=== PATIENT | male | born 1955 | race American Indian/Alaskan Native ===

== ENCOUNTER 2019-01-27 20:36 | Inpatient (IN) | payer BC, MEDICARE ==
[2019-01-27] MEDS ORDERED: ASPIRIN 325 MG TAB PO ONE (20:56)
--- NOTE | 2019-01-27 20:58 | Event Note ---
ED Screening Note Date of service: 01/27/19 Time: 20:54 ED Screening Note: This is a 64 y.o. M. that presents to the ER with chest pain and dyspnea today. PMH HTN, DM2, & HLD Reports pain as a nagging pain. States not as sharp as earlier today. This initial assessment/diagnostic orders/clinical plan/treatment(s) is/are subject to change based on patients health status, clinical progression and re- assessment by fellow clinical providers in the ED. Further treatment and workup at subsequent clinical providers discretion. Patient/guardian urged not to elope from the ED as their condition may be serious if not clinically assessed and managed. Initial orders include: Labs, EKG, & CXR
[2019-01-27 21:26] LABS: Basophils # (Auto) 0.1 K/mm3 (0.0-0.1); Basophils % (Auto) 0.9 % (0.0-1.8); Eosinophils # (Auto) 0.1 K/mm3 (0.0-0.4); Eosinophils % (Auto) 1.1 % (0.0-4.3); Hematocrit 45.1 % (35.5-45.6); Hemoglobin 14.2 gm/dl (11.8-15.2); Lymphocytes # (Auto) 1.4 K/mm3 (1.2-5.4); Lymphocytes % (Auto) 12.5 % (13.4-35.0); Mean Corpuscular HGB Conc 31 % (32-34); Mean Corpuscular Volume 84 fl (84-94); Monocytes # (Auto) 0.5 K/mm3 (0.0-0.8); Monocytes % (Auto) 4.3 % (0.0-7.3); Platelet Count 186 K/mm3 (140-440); Red Cell Distribution Width 16.2 % (13.2-15.2)
--- NOTE | 2019-01-27 21:38 | XRay Report ---
CHEST 1 VIEW 2113 INDICATION / CLINICAL INFORMATION: Chest Pain. COMPARISON: None currently available. FINDINGS: SUPPORT DEVICES: None HEART / MEDIASTINUM: No significant abnormality. LUNGS / PLEURA: A congested appearance is noted and there may be slight interstitial edema. Mild righ t hilar prominence is seen which may just be vascular. No definite areas of consolidation are noted. No pneumothorax. ADDITIONAL FINDINGS: No significant additional findings. IMPRESSION: Congestion. Follow up of right hilar prominence is suggested. Signer Name: Dl Bond MD Signed: 01/27/2019 9:34 PM Workstation Name: [id number]
[2019-01-27 21:48] LABS: BUN/Creatinine Ratio 13; Blood Urea Nitrogen 16 mg/dL (9-20); Calcium 9.5 mg/dL (8.4-10.2); Hemolysis Index 12
[2019-01-27] MEDS ORDERED: ACETAMINOPHEN 325 MG TAB PO PRN (23:37)
[2019-01-27] MEDS ORDERED: hydrALAZINE 20 MG/1 ML INJ IV PRN (23:38)
--- NOTE | 2019-01-27 23:38 | Emergency Department Report ---
ED Chest Pain HPI - General Chief Complaint: Chest Pain Stated Complaint: CHEST PAIN, DIFFICULTY IN BREATHING Time Seen by Provider: 01/27/19 20:54 Source: patient Mode of arrival: Ambulatory Limitations: No Limitations - History of Present Illness Initial Comments: 64-year-old male with history of hypertension and diabetes presents to ED with chest pain and shortness of breath. Patient states he has been experiencing these symptoms for a few weeks now, became worse and he went bowling tonight. Patient reports tightness in his chest with associated shortness of breath and diaphoresis denies nausea, vomiting, leg pain or leg swelling. States symptoms are currently resolved. Patient states he has been out of his blood pressure medication for several months due to issues with insurance. Patient reports tobacco use. MD Complaint: chest pain -: week(s) (4) Onset: during rest, during exertion Pain Location: substernal Pain Radiation: none Severity: moderate Severity scale (0 -10): 5 Quality: tightness Consistency: intermittent, now resolved Improves With: rest Worsens With: nothing, exertion re: diaphoresis, dyspnea. denies: nausea, vomting Other Symptoms: denies: cough, fever, leg swelling - Related Data Home Medications Medication Instructions Recorded Confirmed Last Taken Insulin NPH Hum/Reg Insulin Hm 20 unit SQ BID 01/28/19 01/28/19 Unknown [Novolin 70-30 100 Unit/ml Vial] Allergies Allergy/AdvReac Type Severity Reaction Status Date / Time No Known Allergies Allergy Unverified 08/22/13 10:09 Heart Score - HEART Score History: Moderately suspicious EKG: Non-specific Age: 45-65 Risk factors: > 3 risk factors or hx of atherosclerotic disease Troponin: < normal limit HEART Score: 5 ED Review of Systems ROS: Stated complaint: CHEST PAIN, DIFFICULTY IN BREATHING Other details as noted in HPI Comment: All other systems reviewed and negative Constitutional: denies: chills, fever Respiratory: shortness of breath. denies: cough Cardiovascular: chest pain Gastrointestinal: denies: nausea, vomiting Musculoskeletal: other (denies leg pain or swelling) ED Past Medical Hx - Past Medical History Previous Medical History?: Yes Hx Hypertension: Yes Hx Heart Attack/AMI: No Hx Congestive Heart Failure: No Hx Diabetes: Yes Hx Deep Vein Thrombosis: No Hx Pulmonary Embolism: No Hx Liver Disease: Yes (recently ask to f/u with MD and has not yet.) Hx Renal Disease: No Hx Sickle Cell Disease: No Hx Arthritis: Yes (right knee) Hx Kidney Stones: No Hx Asthma: No Hx COPD: No Hx Tuberculosis: No Hx HIV: No - Surgical History Past Surgical History?: Yes Hx Coronary Stent: No Hx Open Heart Surgery: No Hx Pacemaker: No Hx Internal Defibrillator: No Hx Cholecystectomy: No Hx Appendectomy: No Hx Breast Surgery: No Additional Surgical History: Right eye prosthesis - Social History Smoking Status: Never Smoker Substance Use Type: None - Medications Home Medications: Home Medications Medication Instructions Recorded Confirmed Last Taken Type Insulin NPH Hum/Reg Insulin Hm 20 unit SQ BID 01/28/19 01/28/19 Unknown History [Novolin 70-30 100 Unit/ml Vial] ED Physical Exam - General Limitations: No Limitations General appearance: alert, in no apparent distress - Head Head exam: Present: atraumatic, normocephalic - ENT ENT exam: Present: mucous membranes moist - Neck Neck exam: Present: normal inspection - Respiratory Respiratory exam: Present: normal lung sounds bilaterally. Absent: respiratory distress - Cardiovascular Cardiovascular Exam: Present: regular rate, normal rhythm - GI/Abdominal GI/Abdominal exam: Present: soft. Absent: distended, tenderness - Extremities Exam Extremities exam: Absent: pedal edema, calf tenderness - Neurological Exam Neurological exam: Present: alert, oriented X3 - Psychiatric Psychiatric exam: Present: normal affect, normal mood - Skin Skin exam: Present: warm, dry, intact, normal color ED Course Vital Signs 01/27/19 01/27/19 01/27/19 20:52 22:16 22:44 Temperature 98.9 F 98.5 F Pulse Rate 102 H 97 H 88 Respiratory 20 17 Rate Blood Pressure 189/121 185/119 Blood Pressure 207/131 [Left] O2 Sat by Pulse 91 100 Oximetry 01/27/19 01/27/19 01/27/19 23:00 23:48 23:50 Temperature Pulse Rate 79 79 78 Respiratory 21 26 H 29 H Rate Blood Pressure 149/89 149/89 149/89 Blood Pressure [Left] O2 Sat by Pulse 92 95 Oximetry 01/28/19 01/28/19 01/28/19 00:00 00:10 00:20 Temperature Pulse Rate 81 79 81 Respiratory 26 H 24 18 Rate Blood Pressure 173/104 165/102 165/102 Blood Pressure [Left] O2 Sat by Pulse 94 92 95 Oximetry ED Medical Decision Making - Lab Data Result diagrams: 01/27/19 21:17 01/27/19 21:17 - EKG Data -: EKG Interpreted by Me EKG shows normal: sinus rhythm, axis, intervals, QRS complexes, ST-T waves Rate: tachycardia (rate 106) - EKG Data Interpretation: LVH - Radiology Data Radiology results: report reviewed, image reviewed - Medical Decision Making 64-year-old male with a several week history of chest tightness, shortness of breath. Presented tonight with similar symptoms while bowling, including diaphoresis. EKG did not show any ST changes, troponin is normal. Labetalol given for treatment of his hypertension. Initial systolic BP in the 200s, improved to the 140s. Patient has heart score of 5. Will admit to hospitalist for further evaluation. - Differential Diagnosis ACS, CHF, pneumonia Critical Care Time: Yes Critical care time in (mins) excluding proc time.: 35 Critical care attestation.: If time is entered above; I have spent that time in minutes in the direct care of this critically ill patient, excluding procedure time. Critical Care Time: 35 minutes ED Disposition Clinical Impression: Acute chest pain, Hypertensive emergency Disposition: [id number] OP ADMIT IP TO THIS HOSP Is pt being admited?: Yes Condition: Stable
[2019-01-27] MEDS ORDERED: DEXTROSE 50% IN WATER (25GM) 50 ML SYRINGE IV PRN (23:54)
--- NOTE | 2019-01-28 00:23 | History and Physical Report ---
History of Present Illness Date of examination: 01/27/19 Date of admission: 01/27/2019 Chief complaint: chest pain History of present illness: 64-year-old -[place] male with history of hypertension and diabetes noncompliant with medication who presents to [facility] ED with complaints of substernal nonradiating chest pain. Pt states that he's had intermittent chest pain for the past 3-4 months. The pain usually occurs during sleep and awakens him. He's been using OTC antacids and sitting up in the recliner for a few hours before returning to bed. However, he states that the pain he experienced today was different. He was out bowling, when he suddenly felt a sharp pain in the center of his chest. The pain was so sharp that he had to lean over on the ronda tor table to brace from falling. At the time he thought that he was having a severe episode of indigestion, so he called his son and told his son to come and pick him up. The pain is nonradiating and he rates it a 9/10. Patient states that chest pain was accompanied by diaphoresis. He denies nausea. His PCP is Dr. Albin Ramsey (located in [place]). He has not seen his PCP since August of this year. Pt states that he ran out of his meds sometime in October, but has gone back to PCP for refill because he was waiting for his new insurance to begin. Past History Past Medical History: diabetes, hypertension Past Surgical History: Other (Right eye prosthesis) Social history: lives with family. denies: smoking, alcohol abuse Family history: no significant family history Medications and Allergies Allergies Allergy/AdvReac Type Severity Reaction Status Date / Time No Known Allergies Allergy Unverified 08/22/13 10:09 Home Medications Medication Instructions Recorded Confirmed Last Taken Type Insulin NPH Hum/Reg Insulin Hm 20 unit SQ BID 01/28/19 01/28/19 Unknown History [Novolin 70-30 100 Unit/ml Vial] Active Meds: Active Medications Acetaminophen (Tylenol) 650 mg PO Q4H PRN PRN Reason: Pain MILD(1-3)/Fever >100.5/GALDAMEZ Aspirin (Baby Aspirin) 81 mg PO QDAY [facility] Dextrose (D50w (25gm) Syringe) 50 ml IV PRN PRN PRN Reason: Hypoglycemia Enoxaparin Sodium (Lovenox) 40 mg SUB-Q QDAY [facility] Hydralazine HCl (Apresoline) 10 mg IV Q4HR PRN PRN Reason: BP >160/100 Hydralazine HCl (Apresoline) 10 mg IV Q4HR PRN PRN Reason: Blood Pressure Insulin Human Lispro (Humalog) 0 unit SUB-Q Q6HR [facility]; Protocol Labetalol HCl (Normodyne) 10 mg IV Q4H PRN PRN Reason: BP >170/105; hold for HR <60 Metformin HCl (Glucophage Xr) 1,000 mg PO BID [facility] Metoprolol Tartrate (Lopressor) 25 mg PO DAILY [facility] Miscellaneous Medication (Pravastatin Sodium [Pravastatin]) 10 mg PO DAILY [facility] Miscellaneous Medication (Amlodipine Besylate/Benazepril [Amlodipine-Benazepril 5/10 Mg]) 1 cap PO DAILY [facility] Ondansetron HCl (Zofran) 4 mg IV Q8H PRN PRN Reason: Nausea And Vomiting Pantoprazole Sodium (Protonix) 40 mg PO DAILY [facility] Sodium Chloride (Sodium Chloride Flush Syringe 10 Ml) 10 ml IV BID [facility] Sodium Chloride (Sodium Chloride Flush Syringe 10 Ml) 10 ml IV PRN PRN PRN Reason: LINE FLUSH Review of Systems All systems: negative Cardiovascular: chest pain (with diaphoresis), shortness of breath Exam - Physical Exam Narrative exam: Physical exam General appearance: Present: No acute distress, alert and oriented 3, well developed, pleasant, adult -[place] male - EENT Eyes: Present: Right eye prosthesis, left PERRL, left EOM intact, ENT: hearing intact, normal dentition - Neck Neck: Present: supple, normal ROM - Respiratory Respiratory effort: Non-labored Respiratory: CTA - Cardiovascular Heart rate: 106 (bpm) Rhythm: ST Heart Sounds: Present: S1, S2 - Extremities Extremities: no ischemia, pulses intact - Peripheral Assessment Peripheral Pulses: within normal limits - Abdominal General gastrointestinal: soft, non-tender, normal bowel sounds - Integumentary Integumentary: Present: warm, dry, - Musculoskeletal Musculoskeletal: Able to move all extremities, normal gait -Neurological Neurological: CN II-XII grossly intact - Psychiatric Psychiatric: cooperative - Constitutional Vitals: Temp Pulse Resp BP Pulse Ox 98.5 F 79 21 149/89 100 01/27/19 22:16 09/26/19 23:00 01/27/19 23:00 01/27/19 23:00 01/27/19 22:16 Results - Labs CBC & Chem 7: 01/27/19 21:17 01/27/19 21:17 Labs: Laboratory Last Values WBC 11.0 K/mm3 (4.5-11.0) 01/27/19 21:17 RBC 5.40 M/mm3 (3.65-5.03) H 01/27/19 21:17 Hgb 14.2 gm/dl (11.8-15.2) 01/27/19 21:17 Hct 45.1 % (35.5-45.6) 01/27/19 21:17 MCV 84 fl (84-94) 01/27/19 21:17 MCH 26 pg (28-32) L 01/27/19 21:17 MCHC 31 % (32-34) L 01/27/19 21:17 RDW 16.2 % (13.2-15.2) H 01/27/19 21:17 Plt Count 186 K/mm3 (140-440) 01/27/19 21:17 Lymph % (Auto) 12.5 % (13.4-35.0) L 01/27/19 21:17 [place] % (Auto) 4.3 % (0.0-7.3) 01/27/19 21:17 Eos % (Auto) 1.1 % (0.0-4.3) 01/27/19 21:17 Baso % (Auto) 0.9 % (0.0-1.8) 01/27/19 21:17 Lymph # 1.4 K/mm3 (1.2-5.4) 01/27/19 21:17 [place] # 0.5 K/mm3 (0.0-0.8) 01/27/19 21:17 Eos # 0.1 K/mm3 (0.0-0.4) 01/27/19 21:17 Baso # 0.1 K/mm3 (0.0-0.1) 01/27/19 21:17 Seg Neutrophils % 81.2 % (40.0-70.0) H 01/27/19 21:17 Seg Neutrophils # 8.9 K/mm3 (1.8-7.7) H 01/27/19 21:17 Sodium 136 mmol/L (137-145) L 01/27/19 21:17 Potassium 3.7 mmol/L (3.6-5.0) 01/27/19 21:17 Chloride 105.1 mmol/L (98-107) 01/27/19 21:17 Carbon Dioxide 20 mmol/L (22-30) L 01/27/19 21:17 15 mmol/L 01/27/19 21:17 BUN 16 mg/dL (9-20) 01/27/19 21:17 1.2 mg/dL (0.8-1.5) 01/27/19 21:17 Estimated GFR > 60 ml/min 01/27/19 21:17 13 % 01/27/19 21:17 Glucose 161 mg/dL (75-100) H 01/27/19 21:17 Calcium 9.5 mg/dL (8.4-10.2) 01/27/19 21:17 0.021 ng/mL (0.00-0.029) 01/27/19 21:17 - Imaging and Cardiology Imaging and Cardiology: CXR: FINDINGS: SUPPORT DEVICES: None HEART / MEDIASTINUM: No significant abnormality. LUNGS / PLEURA: A congested appearance is noted and there may be slight interstitial edema. Mild right hilar prominence is seen which may just be vascular. No definite areas of consolidation are noted. No pneumothorax. ADDITIONAL FINDINGS: No significant additional findings. IMPRESSION: Congestion. Follow up of right hilar prominence is suggested. Assessment and Plan Assessment and plan: 64-year-old -[place] male with history of hypertension and diabetes noncompliant with medication who presents to us see ED with complaints of substernal nonradiating chest pain accompanied by profound diaphoresis. Hypertensive urgency -BP on admission 189/121 -Hx Hypertension -Noncompliant with meds due to inconsistent insurance coverage; counseled regarding the importance of compliance -Continue to monitor BP -Resume home antihypertensive meds to optimize BP -IV antihypertensive when necessary Acute Chest Pain -Likely secondary to coronary vasospasm -Initiate chest pain protocol -Continuous telemetry monitoring -Continue supportive care -Pain mgmt -Echo pending -Troponin negative x 1, will continue to trend -On ASA and Statin -Lipid panel pending -Cardiology consult pending DM2 -BG on admission 168 -Resume metformin -SSI coverage prn -HgbA1c pending DVT PPX -on Lovenox Advance Directives: No VTE prophylaxis?: Chemical, Mechanical Plan of care discussed with patient/family: Yes
[2019-01-28] MEDS: INSULIN LISPRO 100 UNIT/ML SUB-Q SCH ×4 (00:24→17:34)
[2019-01-28] MEDS: hydrALAZINE 20 MG/1 ML INJ IV PRN ×2 (05:10→13:35)
[2019-01-28 06:47] LABS: Basophils # (Auto) 0.1 K/mm3 (0.0-0.1); Basophils % (Auto) 0.8 % (0.0-1.8); Eosinophils # (Auto) 0.1 K/mm3 (0.0-0.4); Eosinophils % (Auto) 1.3 % (0.0-4.3); Hematocrit 44.3 % (35.5-45.6); Hemoglobin 14.2 gm/dl (11.8-15.2); Lymphocytes # (Auto) 2.8 K/mm3 (1.2-5.4); Lymphocytes % (Auto) 24.4 % (13.4-35.0); Mean Corpuscular HGB Conc 32 % (32-34); Mean Corpuscular Volume 83 fl (84-94); Monocytes # (Auto) 0.8 K/mm3 (0.0-0.8); Monocytes % (Auto) 7.1 % (0.0-7.3); Platelet Count 214 K/mm3 (140-440); Red Blood Count 5.35 M/mm3 (3.65-5.03); Red Cell Distribution Width 15.9 % (13.2-15.2)
[2019-01-28] MEDS: MORPHINE 2 MG/1 ML INJ IV PRN ×2 (06:52→18:29)
[2019-01-28] MEDS: ONDANSETRON 4 MG/2 ML INJ IV PRN ×2 (06:52→19:28)
[2019-01-28 07:02] LABS: BUN/Creatinine Ratio 13; Blood Urea Nitrogen 15 mg/dL (9-20); Calcium 9.9 mg/dL (8.4-10.2); Chol/HDL Ratio 5.25 %; HDL Cholesterol 35 mg/dL (40-59); Hemolysis Index 0; LDL Cholesterol,Direct 134 mg/dL (50-130)
--- NOTE | 2019-01-28 07:46 | Progress Note ---
Assessment and Plan Assessment and plan: Patient is a 64-year-old -Citizen Of [place] man with history of hypertension, DM type 2 and dyslipidemia who presents to [facility] with chest pains. He admits to being noncompliant with medications since August 2018. In ED, he was found to have malignant hypertension. * pCXR Impression: Congestion. Follow up right hilar prominence is suggested Malignant hypertension, BP on admission 189/121: treat with anti-hypertensives and prn IV medications Chest pains: stress test for ischemic evaluation, Cardiology consult pending Evaluate for Hypertensive heart disease vs Acute diastolic heart failure although proBNP in normal range: TTE pending Microcytosis without anemia: needs outpatient colonoscopy if he hasn't Type 2 DM complicated by hyperglycemia: ssi, accuchecks, ada. A1c 7.4 Morbid Obesity, BMI 58.5: developmental training counselor on Lifestyle modifications DVT PPX-on Lovenox stress test==>positive--->LHC on Thursday 2D ECHO pending get 2v CXR, still pending Cardiology consulted, input noted History Interval history: Patient was seen and examined. Follow-up on current diagnosis of Chest pains and uncontrolled hypertension. No overnight events reported to me. Patient denies any shortness breath, nausea/vomiting or severe headaches. Imaging, nursing note, chart, labs and old chart reviewed. Discussed with patient. Hospitalist Physical - Physical exam Narrative exam: Gen: WDWN, NAD, Awake, Alert, Orientated HEENT: NCAT, EOMI, PERRL, OP Clear Neck: supple, no adenopathy, no thyromegaly, no JVD CVS/Heart: RRR, normal S1S2, pulses present bilaterally Chest/Lungs: CTA B, Symmetrical chest expansion, good air entry bilaterally GI/Abdomen: soft, NTND, good bowel sounds, no guarding or rebound /Bladder: no suprapubic tenderness, no CVA or paraspinal tenderness Extermity/Skin: no c/c/e, no obvious rash MSK: FROM x 4 Neuro: CN 2-12 grossly intact, no new focal deficits Psych: calm - Constitutional Vitals: Temp Pulse Resp BP Pulse Ox 97.7 F 89 16 201/101 89 01/28/19 03:37 01/28/19 06:53 01/28/19 03:37 01/28/19 06:53 01/28/19 03:37 Results - Labs CBC & Chem 7: 01/28/19 05:44 01/28/19 05:44 Labs: Laboratory Last Values WBC 11.3 K/mm3 (4.5-11.0) H 01/28/19 05:44 RBC 5.35 M/mm3 (3.65-5.03) H 01/28/19 05:44 Hgb 14.2 gm/dl (11.8-15.2) 01/28/19 05:44 Hct 44.3 % (35.5-45.6) 01/28/19 05:44 MCV 83 fl (84-94) L 01/28/19 05:44 MCH 27 pg (28-32) L 01/28/19 05:44 MCHC 32 % (32-34) 01/28/19 05:44 RDW 15.9 % (13.2-15.2) H 01/28/19 05:44 Plt Count 214 K/mm3 (140-440) 01/28/19 05:44 Lymph % (Auto) 24.4 % (13.4-35.0) 01/28/19 05:44 [place] % (Auto) 7.1 % (0.0-7.3) 01/28/19 05:44 Eos % (Auto) 1.3 % (0.0-4.3) 01/28/19 05:44 Baso % (Auto) 0.8 % (0.0-1.8) 01/28/19 05:44 Lymph # 2.8 K/mm3 (1.2-5.4) 01/28/19 05:44 [place] # 0.8 K/mm3 (0.0-0.8) 01/28/19 05:44 Eos # 0.1 K/mm3 (0.0-0.4) 01/28/19 05:44 Baso # 0.1 K/mm3 (0.0-0.1) 01/28/19 05:44 Seg Neutrophils % 66.4 % (40.0-70.0) 01/28/19 05:44 Seg Neutrophils # 7.5 K/mm3 (1.8-7.7) 01/28/19 05:44 Sodium 136 mmol/L (137-145) L 01/28/19 05:44 Potassium 3.8 mmol/L (3.6-5.0) 01/28/19 05:44 Chloride 101.8 mmol/L (98-107) 01/28/19 05:44 Carbon Dioxide 19 mmol/L (22-30) L 01/28/19 05:44 19 mmol/L 01/28/19 05:44 BUN 15 mg/dL (9-20) 01/28/19 05:44 1.2 mg/dL (0.8-1.5) 01/28/19 05:44 Estimated GFR > 60 ml/min 01/28/19 05:44 13 % 01/28/19 05:44 Glucose 184 mg/dL (75-100) H 01/28/19 05:44 POC Glucose 164 (70-105) H 01/28/19 05:20 7.4 % (4-6) H 01/27/19 21:17 Calcium 9.9 mg/dL (8.4-10.2) 01/28/19 05:44 0.019 ng/mL (0.00-0.029) 01/28/19 05:44 NT-Pro-B Natriuret Pep 833.0 pg/mL (0-900) 01/27/19 22:53 Triglycerides 161 mg/dL (2-149) H 01/28/19 05:44 Cholesterol 184 mg/dL (50-199) 01/28/19 05:44 134 mg/dL (50-130) H 01/28/19 05:44 35 mg/dL (40-59) L 01/28/19 05:44 5.25 % 01/28/19 05:44 Active Medications - Current Medications Current Medications: Generic Name Dose Route Start Last Admin Trade Name Freq PRN Reason Stop Dose Admin Acetaminophen 650 mg 01/27/19 23:37 Tylenol PO Q4H PRN Pain MILD(1-3)/Fever >100.5/GALDAMEZ Amlodipine Besylate 5 mg 01/28/19 10:00 Norvasc PO DAILY [facility] Aspirin 81 mg 01/28/19 10:00 Baby Aspirin PO QDAY [facility] Dextrose 50 ml 01/27/19 23:54 D50w (25gm) Syringe IV PRN PRN Hypoglycemia Enoxaparin Sodium 40 mg 01/28/19 10:00 Lovenox SUB-Q QDAY [facility] Hydralazine HCl 10 mg 01/28/19 00:01 01/28/19 05:10 Apresoline IV 10 mg Q4HR PRN Administration Blood Pressure Insulin Human Lispro 0 unit 01/28/19 00:00 01/28/19 05:13 Humalog SUB-Q Not Given Q6HR [facility] Protocol Labetalol HCl 10 mg 01/27/19 23:38 01/28/19 06:53 Normodyne IV 10 mg Q4H PRN Administration BP >170/105; hold for HR <60 Lisinopril 40 mg 01/28/19 10:00 Zestril PO QDAY [facility] Metoprolol Tartrate 25 mg 01/28/19 10:00 Lopressor PO DAILY [facility] Morphine Sulfate 2 mg 01/28/19 06:40 01/28/19 06:52 Morphine IV 2 mg Q4H PRN Administration Pain, Moderate (4-6) Ondansetron HCl 4 mg 01/27/19 23:37 01/28/19 06:52 Zofran IV 4 mg Q8H PRN Administration Nausea And Vomiting Pantoprazole Sodium 40 mg 01/28/19 10:00 Protonix PO DAILY [facility] Pravastatin Sodium 10 mg 01/28/19 10:00 Pravachol PO DAILY [facility] Sodium Chloride 10 ml 01/28/19 10:00 Sodium Chloride Flush Syringe 10 Ml IV BID [facility] Sodium Chloride 10 ml 01/27/19 23:37 Sodium Chloride Flush Syringe 10 Ml IV PRN PRN LINE FLUSH
[2019-01-28] MEDS ORDERED: INSULIN NPH/REGULAR 70/30 INJ SUB-Q SCH (08:00)
[2019-01-28] MEDS ORDERED: REGADENOSON 0.4 MG/5 ML INJ IV ONE ×2 (09:36)
[2019-01-28] MEDS ORDERED: LISINOPRIL 10 MG TAB PO SCH (10:00)
[2019-01-28] MEDS ORDERED: AMLODIPINE BESYLATE PO SCH (10:00)
[2019-01-28] MEDS ORDERED: NON-FORMULARY EACH (Pravastatin Sodium [Pravastatin] 10 MG) PO SCH (10:00)
[2019-01-28] MEDS ORDERED: metFORMIN XR 500MG TAB PO SCH (10:00)
[2019-01-28] MEDS ORDERED: METOPROLOL TARTRATE 25 MG TAB PO SCH (10:00)
[2019-01-28] MEDS ORDERED: BENAZEPRIL PO SCH (10:00)
[2019-01-28] MEDS ORDERED: [UNRECOGNIZED DRUG - OTHER] PO SCH (10:00)
--- NOTE | 2019-01-28 11:52 | Consultation ---
History of Present Illness Consult date: 01/28/19 Consult reason: shortness of breath History of present illness: 64-year-old male with history of hypertension and diabetes presents to ED with chest pain and shortness of breath. Patient states he has been experiencing these symptoms for a few weeks now, became worse as he went bowling last night. Patient states he has been out of his blood pressure medication for several months due to issues with insurance. Patient reports tobacco use. Patient states that he had a history of PCI 25 years ago. Past History Past Medical History: diabetes, hypertension Past Surgical History: Other (Right eye prosthesis) Social history: lives with family. denies: smoking, alcohol abuse Family history: no significant family history Medications and Allergies Allergies Allergy/AdvReac Type Severity Reaction Status Date / Time No Known Allergies Allergy Unverified 08/22/13 10:09 Home Medications Medication Instructions Recorded Confirmed Last Taken Type Insulin NPH Hum/Reg Insulin Hm 20 unit SQ BID 01/28/19 01/28/19 Unknown History [Novolin 70-30 100 Unit/ml Vial] Active Meds: Active Medications Acetaminophen (Tylenol) 650 mg PO Q4H PRN PRN Reason: Pain MILD(1-3)/Fever >100.5/GALDAMEZ Amlodipine Besylate (Norvasc) 5 mg PO DAILY [facility] Aspirin (Baby Aspirin) 81 mg PO QDAY [facility] Dextrose (D50w (25gm) Syringe) 50 ml IV PRN PRN PRN Reason: Hypoglycemia Enoxaparin Sodium (Lovenox) 40 mg SUB-Q QDAY [facility] Hydralazine HCl (Apresoline) 10 mg IV Q4HR PRN PRN Reason: Blood Pressure Last Admin: 01/28/19 05:10 Dose: 10 mg Documented by: Insulin Human Lispro (Humalog) 0 unit SUB-Q Q6HR [facility]; Protocol Last Admin: 01/28/19 05:13 Dose: Not Given Documented by: Labetalol HCl (Normodyne) 10 mg IV Q4H PRN PRN Reason: BP >170/105; hold for HR <60 Last Admin: 01/28/19 06:53 Dose: 10 mg Documented by: Lisinopril (Zestril) 40 mg PO QDAY [facility] Metoprolol Succinate (Toprol Xl) 25 mg PO QDAY [facility] Morphine Sulfate (Morphine) 2 mg IV Q4H PRN PRN Reason: Pain, Moderate (4-6) Last Admin: 01/28/19 06:52 Dose: 2 mg Documented by: Ondansetron HCl (Zofran) 4 mg IV Q8H PRN PRN Reason: Nausea And Vomiting Last Admin: 01/28/19 06:52 Dose: 4 mg Documented by: Pantoprazole Sodium (Protonix) 40 mg PO DAILY LUIS Pravastatin Sodium (Pravachol) 10 mg PO DAILY LUIS Sodium Chloride (Sodium Chloride Flush Syringe 10 Ml) 10 ml IV BID LUIS Sodium Chloride (Sodium Chloride Flush Syringe 10 Ml) 10 ml IV PRN PRN PRN Reason: LINE FLUSH Review of Systems All systems: negative Physical Examination Vital Signs Temp Pulse Resp BP Pulse Ox 98.9 F 102 H 20 189/121 91 01/27/19 20:52 01/27/19 20:52 01/27/19 20:52 01/27/19 20:52 01/27/19 20:52 General appearance: no acute distress HEENT: Positive: PERRL Neck: Positive: neck supple Cardiac: Positive: Reg Rate and Rhythm Lungs: Positive: Normal Exam Neuro: Positive: Grossly Intact Abdomen: Positive: Soft Extremities: Present: normal Results 01/28/19 05:44 01/28/19 05:44 Lipids 01/28/19 Range/Units 05:44 Triglycerides 161 H (2-149) mg/dL Cholesterol 184 (50-199) mg/dL HDL Cholesterol 35 L (40-59) mg/dL Cholesterol/HDL Ratio 5.25 % CBC 01/27/19 01/28/19 Range/Units 21:17 05:44 WBC 11.0 11.3 H (4.5-11.0) K/mm3 RBC 5.40 H 5.35 H (3.65-5.03) M/mm3 Hgb 14.2 14.2 (11.8-15.2) gm/dl Hct 45.1 44.3 (35.5-45.6) % Plt Count 186 214 (140-440) K/mm3 Lymph # 1.4 2.8 (1.2-5.4) K/mm3 [place] # 0.5 0.8 (0.0-0.8) K/mm3 Eos # 0.1 0.1 (0.0-0.4) K/mm3 Baso # 0.1 0.1 (0.0-0.1) K/mm3 Comprehensive Metabolic Panel 01/27/19 01/28/19 Range/Units 21:17 05:44 Sodium 136 L 136 L (137-145) mmol/L Potassium 3.7 3.8 (3.6-5.0) mmol/L Chloride 105.1 101.8 (98-107) mmol/L Carbon Dioxide 20 L 19 L (22-30) mmol/L BUN 16 15 (9-20) mg/dL Creatinine 1.2 1.2 (0.8-1.5) mg/dL Glucose 161 H 184 H (75-100) mg/dL Calcium 9.5 9.9 (8.4-10.2) mg/dL EKG interpretations - Telemetry EKG Rhythm: Sinus Rhythm Assessment and Plan Shortness of breath Essential hypertension ? History of CAD and PCI 25 years ago No cardiac follow-up as outpatient Type II DM Abnormal ECG Anemia Non-compliance Follow-up lexiscan findings Risk factor modification
[2019-01-28] MEDS: PANTOPRAZOLE 40 MG TAB PO SCH (13:22)
[2019-01-28] MEDS: METOPROLOL SUCCINATE XL 25 MG TAB PO SCH (13:22)
[2019-01-28] MEDS: amLODIPine 5 MG TAB PO SCH (13:22)
[2019-01-28] MEDS: LISINOPRIL 40 MG TAB PO SCH (13:23)
[2019-01-28] MEDS: ASPIRIN 81 MG TAB CHEW PO SCH (13:24)
[2019-01-28] MEDS: PRAVASTATIN 20 MG TAB PO SCH (13:24)
[2019-01-28] MEDS: ENOXAPARIN 40 MG/0.4 ML INJ SUB-Q SCH (13:25)
--- NOTE | 2019-01-28 18:38 | XRay Report ---
CHEST PA AND LATERAL VIEWS INDICATION: chest pains. COMPARISON: One day prior. FINDINGS: Support devices: None Heart: Stable. Lungs/Pleura: No convincing evidence of interstitial edema or acute pulmonary disease. Right hilum re jelena prominent, most likely vascular. IMPRESSION: 1. No significant change. Signer Name: Riki Hadley MD Signed: 01/28/2019 6:33 PM Workstation Name: [id number]
--- NOTE | 2019-01-28 22:34 | Treadmill Report ---
LEFT HEART CATHETERIZATION INDICATION FOR TESTING: Chest pain and shortness of breath. ORDERING PHYSICIAN: Isreal Conroy MD FINDINGS: This is a suboptimal myocardial perfusion scan. There is evidence of a small fixed apical and mid inferior wall defect of moderate intensity. There is no scintigraphic evidence of myocardial ischemia. The left ventricular cavity is severely dilated. The left ventricular ejection fraction is measured at 31% with severe global left ventricular hypokinesis. IMPRESSION: 1. Severely dilated left ventricular cavity with severe global left ventricular hypokinesis, ejection fraction measured at 31%. 2. Small fixed apical and mid inferior wall defect of moderate intensity. 3. No scintigraphic evidence of myocardial ischemia. JOB# [id number] MINESH/CARRIE
[2019-01-29] MEDS: INSULIN LISPRO 100 UNIT/ML SUB-Q SCH ×5 (00:49→23:56)
[2019-01-29] MEDS: PRAVASTATIN 20 MG TAB PO SCH (10:12)
[2019-01-29] MEDS: ENOXAPARIN 40 MG/0.4 ML INJ SUB-Q SCH (10:12)
[2019-01-29] MEDS: ASPIRIN 81 MG TAB CHEW PO SCH (10:13)
[2019-01-29] MEDS: PANTOPRAZOLE 40 MG TAB PO SCH (11:01)
[2019-01-29] MEDS: METOPROLOL SUCCINATE XL 25 MG TAB PO SCH (11:02)
[2019-01-29] MEDS: amLODIPine 5 MG TAB PO SCH (11:02)
[2019-01-29] MEDS: LISINOPRIL 40 MG TAB PO SCH (11:03)
--- NOTE | 2019-01-29 12:19 | Progress Note ---
Assessment and Plan - Patient Problems (1) Abnormal thallium stress test Current Visit: Yes Status: Acute Plan to address problem: Patient has been recommended for a cardiac catheterization on Thursday morning. Subjective Date of service: 01/29/19 Interval history: Patient is comfortable, no new cardiac complaints. Looks and feels better. Objective Vital Signs Temp Pulse Resp BP Pulse Ox 01/29/19 11:03 91 H 168/108 01/29/19 11:02 91 H 168/108 01/29/19 08:24 98.2 F 91 H 20 168/108 91 01/29/19 05:07 98.6 F 01/29/19 05:06 88 18 141/94 92 01/28/19 22:15 98.3 F 01/28/19 22:13 81 20 152/92 93 01/28/19 19:45 91 H 01/28/19 19:43 91 H 18 181/114 95 01/28/19 18:28 82 179/108 01/28/19 18:17 18 179/108 01/28/19 16:42 97.9 F 102 H 20 170/107 90 01/28/19 13:35 104 H 185/112 01/28/19 13:23 104 H 185/112 01/28/19 13:22 104 H 185/112 01/28/19 13:20 97.9 F 104 H 20 185/112 89 01/28/19 12:21 18 - Physical Examination General: No Apparent Distress HEENT: Positive: PERRL Neck: Positive: neck supple Cardiac: Positive: Reg Rate and Rhythm Lungs: Positive: Decreased Breath Sounds Neuro: Positive: Grossly Intact Abdomen: Positive: Soft Skin: Positive: Clear Extremities: Absent: edema
--- NOTE | 2019-01-29 13:44 | Progress Note ---
Assessment and Plan Assessment and plan: Patient is a 64-year-old -[place]ones[place] man with history of hypertension, DM type 2 and dyslipidemia who presents to [facility] with chest pains. He admits to being noncompliant with medications since August 2018. In ED, he was found to have malignant hypertension. * pCXR Impression: Congestion. Follow up right hilar prominence is suggested Malignant hypertension, BP on admission 189/121: treat with anti-hypertensives and prn IV medications Chest pains: stress test for ischemic evaluation, Cardiology consult pending Evaluate for Hypertensive heart disease vs Acute diastolic heart failure although proBNP in normal range: TTE pending Microcytosis without anemia: needs outpatient colonoscopy if he hasn't Type 2 DM complicated by hyperglycemia: ssi, accuchecks, ada. A1c 7.4 Morbid Obesity, BMI 58.5: counseling aide on Lifestyle modifications DVT PPX-on Lovenox stress test==>positive--->LHC on Thursday 2D ECHO pending get 2v CXR, still pending Cardiology consulted, input noted History Interval history: Patient was seen and examined. Follow-up on current diagnosis of Chest pains and uncontrolled hypertension. No overnight events reported to me. Patient denies any shortness breath, nausea/vomiting or severe headaches. Imaging, nursing note, chart, labs and old chart reviewed. Discussed with patient. Hospitalist Physical - Physical exam Narrative exam: Gen: WDWN, NAD, Awake, Alert, Orientated HEENT: NCAT, EOMI, PERRL, OP Clear Neck: supple, no adenopathy, no thyromegaly, no JVD CVS/Heart: RRR, normal S1S2, pulses present bilaterally Chest/Lungs: CTA B, Symmetrical chest expansion, good air entry bilaterally GI/Abdomen: soft, NTND, good bowel sounds, no guarding or rebound /Bladder: no suprapubic tenderness, no CVA or paraspinal tenderness Extermity/Skin: no c/c/e, no obvious rash MSK: FROM x 4 Neuro: CN 2-12 grossly intact, no new focal deficits Psych: calm - Constitutional Vitals: Temp Pulse Resp BP Pulse Ox 98.2 F 91 H 20 152/97 92 01/29/19 12:01/29/19 12:01/29/19 12:01/29/19 12:01/29/19 12:26 General appearance: Present: no acute distress Results - Labs CBC & Chem 7: 01/28/19 05:44 01/28/19 05:44 Labs: Laboratory Last Values WBC 11.3 K/mm3 (4.5-11.0) H 01/28/19 05:44 RBC 5.35 M/mm3 (3.65-5.03) H 01/28/19 05:44 Hgb 14.2 gm/dl (11.8-15.2) 01/28/19 05:44 Hct 44.3 % (35.5-45.6) 01/28/19 05:44 MCV 83 fl (84-94) L 01/28/19 05:44 MCH 27 pg (28-32) L 01/28/19 05:44 MCHC 32 % (32-34) 01/28/19 05:44 RDW 15.9 % (13.2-15.2) H 01/28/19 05:44 Plt Count 214 K/mm3 (140-440) 01/28/19 05:44 Lymph % (Auto) 24.4 % (13.4-35.0) 01/28/19 05:44 [place] % (Auto) 7.1 % (0.0-7.3) 01/28/19 05:44 Eos % (Auto) 1.3 % (0.0-4.3) 01/28/19 05:44 Baso % (Auto) 0.8 % (0.0-1.8) 01/28/19 05:44 Lymph # 2.8 K/mm3 (1.2-5.4) 01/28/19 05:44 [place] # 0.8 K/mm3 (0.0-0.8) 01/28/19 05:44 Eos # 0.1 K/mm3 (0.0-0.4) 01/28/19 05:44 Baso # 0.1 K/mm3 (0.0-0.1) 01/28/19 05:44 Seg Neutrophils % 66.4 % (40.0-70.0) 01/28/19 05:44 Seg Neutrophils # 7.5 K/mm3 (1.8-7.7) 01/28/19 05:44 Sodium 136 mmol/L (137-145) L 01/28/19 05:44 Potassium 3.8 mmol/L (3.6-5.0) 01/28/19 05:44 Chloride 101.8 mmol/L (98-107) 01/28/19 05:44 Carbon Dioxide 19 mmol/L (22-30) L 01/28/19 05:44 19 mmol/L 01/28/19 05:44 BUN 15 mg/dL (9-20) 01/28/19 05:44 1.2 mg/dL (0.8-1.5) 01/28/19 05:44 Estimated GFR > 60 ml/min 01/28/19 05:44 13 % 01/28/19 05:44 Glucose 184 mg/dL (75-100) H 01/28/19 05:44 POC Glucose 230 (70-105) H 01/29/19 12:32 7.4 % (4-6) H 01/27/19 21:17 Calcium 9.9 mg/dL (8.4-10.2) 01/28/19 05:44 0.019 ng/mL (0.00-0.029) 01/28/19 05:44 NT-Pro-B Natriuret Pep 833.0 pg/mL (0-900) 01/27/19 22:53 Triglycerides 161 mg/dL (2-149) H 01/28/19 05:44 Cholesterol 184 mg/dL (50-199) 01/28/19 05:44 134 mg/dL (50-130) H 01/28/19 05:44 35 mg/dL (40-59) L 01/28/19 05:44 5.25 % 01/28/19 05:44 Active Medications - Current Medications Current Medications: Generic Name Dose Route Start Last Admin Trade Name Freq PRN Reason Stop Dose Admin Acetaminophen 650 mg 01/27/19 23:37 Tylenol PO Q4H PRN Pain MILD(1-3)/Fever >100.5/GALDAMEZ Amlodipine Besylate 5 mg 01/28/19 10:00 01/29/19 11:02 Norvasc PO 5 mg DAILY LUIS Administration Aspirin 81 mg 01/28/19 10:00 01/29/19 10:13 Baby Aspirin PO 81 mg QDAY LUIS Administration Dextrose 50 ml 01/27/19 23:54 D50w (25gm) Syringe IV PRN PRN Hypoglycemia Enoxaparin Sodium 40 mg 01/28/19 10:00 01/29/19 10:12 Lovenox SUB-Q 40 mg QDAY LUIS Administration Hydralazine HCl 10 mg 01/28/19 00:01 01/28/19 13:35 Apresoline IV 10 mg Q4HR PRN Administration Blood Pressure Insulin Human Lispro 0 unit 01/28/19 00:00 01/29/19 12:41 Humalog SUB-Q 3 unit Q6HR LUIS Administration Protocol Labetalol HCl 10 mg 01/27/19 23:38 01/28/19 18:28 Normodyne IV 10 mg Q4H PRN Administration BP >170/105; hold for HR <60 Lisinopril 40 mg 01/28/19 10:00 01/29/19 11:03 Zestril PO 40 mg QDAY LUIS Administration Metoprolol Succinate 25 mg 01/28/19 10:00 01/29/19 11:02 Toprol Xl PO 25 mg QDAY LUIS Administration Morphine Sulfate 2 mg 01/28/19 06:40 01/28/19 18:29 Morphine IV 2 mg Q4H PRN Administration Pain, Moderate (4-6) Ondansetron HCl 4 mg 01/27/19 23:37 01/28/19 19:28 Zofran IV 4 mg Q8H PRN Administration Nausea And Vomiting Pantoprazole Sodium 40 mg 01/28/19 10:00 01/29/19 11:01 Protonix PO 40 mg DAILY LUIS Administration Pravastatin Sodium 10 mg 01/28/19 10:00 01/29/19 10:12 Pravachol PO 10 mg DAILY LUIS Administration Sodium Chloride 10 ml 01/28/19 10:00 01/29/19 10:12 Sodium Chloride Flush Syringe 10 Ml IV 10 ml BID LUIS Administration Sodium Chloride 10 ml 01/27/19 23:37 Sodium Chloride Flush Syringe 10 Ml IV PRN PRN LINE FLUSH
[2019-01-29] MEDS: hydrALAZINE 20 MG/1 ML INJ IV PRN (15:38)
[2019-01-29] MEDS: MORPHINE 2 MG/1 ML INJ IV PRN (17:08)
[2019-01-30] MEDS: INSULIN LISPRO 100 UNIT/ML SUB-Q SCH ×2 (00:06→06:27)
--- NOTE | 2019-01-30 07:37 | Progress Note ---
Assessment and Plan Assessment and plan: Patient is a 64-year-old -[place] man with history of hypertension, DM type 2 and dyslipidemia who presents to [facility] with chest pains. He admits to being noncompliant with medications since August 2018. In ED, he was found to have malignant hypertension. * pCXR Impression: Congestion. Follow up right hilar prominence is suggested Malignant hypertension, BP on admission 189/121: treat with anti-hypertensives and prn IV medications Chest pains: stress test for ischemic evaluation, Cardiology consult pending Evaluate for Hypertensive heart disease vs Acute diastolic heart failure although proBNP in normal range: TTE pending Microcytosis without anemia: needs outpatient colonoscopy if he hasn't Type 2 DM complicated by hyperglycemia: ssi, accuchecks, ada. A1c 7.4 Morbid Obesity, BMI 58.5: general counsel on Lifestyle modifications DVT PPX-on Lovenox stress test==>positive--->LHC on Thursday 2D ECHO pending==> TTE conclusion: Small indistinct echodensity in the left atrium associated with the lateral wall of underdetermined significane or jan ology, if clinically indicated consider FELICIA for better visualization. Global left ventricular systolic funciton is at lower limits of normal, est EF 50-55%, mild to moderate concentric LVH, mild MR, mild AR, trace TR get 2v CXR==>negative Cardiology consulted, input noted History Interval history: Patient was seen and examined. Follow-up on current diagnosis of Chest pains and uncontrolled hypertension. Overnight events reported to me was chest pains, rep eat Troponin normal. Patient denies any shortness breath, nausea/vomiting or severe headaches. Imaging, nursing note, chart, labs and old chart reviewed. Discussed with patient. Hospitalist Physical - Physical exam Narrative exam: Gen: WDWN, NAD, Awake, Alert, Orientated HEENT: NCAT, EOMI, PERRL, OP Clear Neck: supple, no adenopathy, no thyromegaly, no JVD CVS/Heart: RRR, normal S1S2, pulses present bilaterally Chest/Lungs: CTA B, Symmetrical chest expansion, good air entry bilaterally GI/Abdomen: soft, NTND, good bowel sounds, no guarding or rebound /Bladder: no suprapubic tenderness, no CVA or paraspinal tenderness Extermity/Skin: no c/c/e, no obvious rash MSK: FROM x 4 Neuro: CN 2-12 grossly intact, no new focal deficits Psych: calm - Constitutional Vitals: Temp Pulse Resp BP Pulse Ox 98.0 F 85 18 148/92 100 01/30/19 04:50 01/30/19 04:49 01/30/19 04:49 01/30/19 04:49 01/30/19 04:49 General appearance: Present: no acute distress Results - Labs CBC & Chem 7: 01/28/19 05:44 01/28/19 05:44 Labs: Laboratory Last Values WBC 11.3 K/mm3 (4.5-11.0) H 01/28/19 05:44 RBC 5.35 M/mm3 (3.65-5.03) H 01/28/19 05:44 Hgb 14.2 gm/dl (11.8-15.2) 01/28/19 05:44 Hct 44.3 % (35.5-45.6) 01/28/19 05:44 MCV 83 fl (84-94) L 01/28/19 05:44 MCH 27 pg (28-32) L 01/28/19 05:44 MCHC 32 % (32-34) 01/28/19 05:44 RDW 15.9 % (13.2-15.2) H 01/28/19 05:44 Plt Count 214 K/mm3 (140-440) 01/28/19 05:44 Lymph % (Auto) 24.4 % (13.4-35.0) 01/28/19 05:44 [place] % (Auto) 7.1 % (0.0-7.3) 01/28/19 05:44 Eos % (Auto) 1.3 % (0.0-4.3) 01/28/19 05:44 Baso % (Auto) 0.8 % (0.0-1.8) 01/28/19 05:44 Lymph # 2.8 K/mm3 (1.2-5.4) 01/28/19 05:44 [place] # 0.8 K/mm3 (0.0-0.8) 01/28/19 05:44 Eos # 0.1 K/mm3 (0.0-0.4) 01/28/19 05:44 Baso # 0.1 K/mm3 (0.0-0.1) 01/28/19 05:44 Seg Neutrophils % 66.4 % (40.0-70.0) 01/28/19 05:44 Seg Neutrophils # 7.5 K/mm3 (1.8-7.7) 01/28/19 05:44 Sodium 136 mmol/L (137-145) L 01/28/19 05:44 Potassium 3.8 mmol/L (3.6-5.0) 01/28/19 05:44 Chloride 101.8 mmol/L (98-107) 01/28/19 05:44 Carbon Dioxide 19 mmol/L (22-30) L 01/28/19 05:44 19 mmol/L 01/28/19 05:44 BUN 15 mg/dL (9-20) 01/28/19 05:44 1.2 mg/dL (0.8-1.5) 01/28/19 05:44 Estimated GFR > 60 ml/min 01/28/19 05:44 13 % 01/28/19 05:44 Glucose 184 mg/dL (75-100) H 01/28/19 05:44 POC Glucose 163 (70-105) H 01/30/19 06:16 7.4 % (4-6) H 01/27/19 21:17 Calcium 9.9 mg/dL (8.4-10.2) 01/28/19 05:44 0.012 ng/mL (0.00-0.029) 01/29/19 17:20 NT-Pro-B Natriuret Pep 833.0 pg/mL (0-900) 01/27/19 22:53 Triglycerides 161 mg/dL (2-149) H 01/28/19 05:44 Cholesterol 184 mg/dL (50-199) 01/28/19 05:44 134 mg/dL (50-130) H 01/28/19 05:44 35 mg/dL (40-59) L 01/28/19 05:44 5.25 % 01/28/19 05:44 Active Medications - Current Medications Current Medications: Generic Name Dose Route Start Last Admin Trade Name Freq PRN Reason Stop Dose Admin Acetaminophen 650 mg 01/27/19 23:37 Tylenol PO Q4H PRN Pain MILD(1-3)/Fever >100.5/GALDAMEZ Amlodipine Besylate 5 mg 01/28/19 10:00 01/29/19 11:02 Norvasc PO 5 mg DAILY LUIS Administration Aspirin 81 mg 01/28/19 10:00 01/29/19 10:13 Baby Aspirin PO 81 mg QDAY LUIS Administration Dextrose 50 ml 01/27/19 23:54 D50w (25gm) Syringe IV PRN PRN Hypoglycemia Enoxaparin Sodium 40 mg 01/28/19 10:00 01/29/19 10:12 Lovenox SUB-Q 40 mg QDAY LUIS Administration Hydralazine HCl 10 mg 01/28/19 00:01 01/29/19 15:38 Apresoline IV 10 mg Q4HR PRN Administration Blood Pressure Insulin Human Lispro 0 unit 01/28/19 00:00 01/30/19 06:27 Humalog SUB-Q 1 unit Q6HR LUIS Administration Protocol Labetalol HCl 10 mg 01/27/19 23:38 01/29/19 17:09 Normodyne IV 10 mg Q4H PRN Administration BP >170/105; hold for HR <60 Lisinopril 40 mg 01/28/19 10:00 01/29/19 11:03 Zestril PO 40 mg QDAY LUIS Administration Metoprolol Succinate 25 mg 01/28/19 10:00 01/29/19 11:02 Toprol Xl PO 25 mg QDAY LUIS Administration Morphine Sulfate 2 mg 01/28/19 06:40 01/29/19 17:08 Morphine IV 2 mg Q4H PRN Administration Pain, Moderate (4-6) Ondansetron HCl 4 mg 01/27/19 23:37 01/28/19 19:28 Zofran IV 4 mg Q8H PRN Administration Nausea And Vomiting Pantoprazole Sodium 40 mg 01/28/19 10:00 01/29/19 11:01 Protonix PO 40 mg DAILY LUIS Administration Pravastatin Sodium 10 mg 01/28/19 10:00 01/29/19 10:12 Pravachol PO 10 mg DAILY LUIS Administration Sodium Chloride 10 ml 01/28/19 10:00 01/29/19 21:24 Sodium Chloride Flush Syringe 10 Ml IV 10 ml BID LUIS Administration Sodium Chloride 10 ml 01/27/19 23:37 Sodium Chloride Flush Syringe 10 Ml IV PRN PRN LINE FLUSH
[2019-01-30] MEDS: amLODIPine 5 MG TAB PO SCH (09:30)
[2019-01-30] MEDS: ENOXAPARIN 40 MG/0.4 ML INJ SUB-Q SCH (09:30)
[2019-01-30] MEDS: ASPIRIN 81 MG TAB CHEW PO SCH (09:31)
[2019-01-30] MEDS: PRAVASTATIN 20 MG TAB PO SCH (09:31)
[2019-01-30] MEDS: METOPROLOL SUCCINATE XL 25 MG TAB PO SCH (09:31)
[2019-01-30] MEDS: PANTOPRAZOLE 40 MG TAB PO SCH (09:31)
[2019-01-30] MEDS: LISINOPRIL 40 MG TAB PO SCH (09:31)
[2019-01-30] MEDS ORDERED: DEXTROSE 50% IN WATER (25GM) 50 ML SYRINGE IV PRN (10:02)
[2019-01-30] MEDS: INSULIN REGULAR, HUMAN 100 UNITS/1 ML SUB-Q SCH (13:12)
[2019-01-30] MEDS ORDERED: SODIUM CHLORIDE 0.9% 500 ML 500 ML IV SCH (16:00)
--- NOTE | 2019-01-30 17:13 | Progress Note ---
Assessment and Plan - Patient Problems (1) Abnormal thallium stress test Current Visit: Yes Status: Acute Plan to address problem: Patient has been recommended for a cardiac catheterization tomorrow morning. Subjective Date of service: 01/30/19 Interval history: Patient is comfortable, no new cardiac complaints. Looks and feels better. Objective Vital Signs Temp Pulse Pulse Resp BP Pulse Ox 01/30/19 12:00 98.2 F 88 18 175/113 95 01/30/19 10:00 80 01/30/19 08:15 98.7 F 89 18 143/81 90 01/30/19 04:50 98.0 F 01/30/19 04:49 85 18 148/92 100 01/29/19 23:35 98.4 F 01/29/19 23:34 88 20 146/89 91 01/29/19 22:35 96 H 18 94 01/29/19 21:20 134/94 01/29/19 20:05 91 H 01/29/19 19:36 96 H 20 168/103 94 - Physical Examination General: No Apparent Distress HEENT: Positive: PERRL Neck: Positive: neck supple Cardiac: Positive: Reg Rate and Rhythm Lungs: Positive: Decreased Breath Sounds Neuro: Positive: Grossly Intact Abdomen: Positive: Soft Skin: Positive: Clear Extremities: Absent: edema
[2019-01-31 08:33] LABS: Basophils # (Auto) 0.1 K/mm3 (0.0-0.1); Basophils % (Auto) 0.8 % (0.0-1.8); Eosinophils # (Auto) 0.2 K/mm3 (0.0-0.4); Eosinophils % (Auto) 2.6 % (0.0-4.3); Hematocrit 42.1 % (35.5-45.6); Hemoglobin 13.7 gm/dl (11.8-15.2); Lymphocytes # (Auto) 1.4 K/mm3 (1.2-5.4); Mean Corpuscular HGB Conc 33 % (32-34); Mean Corpuscular Volume 84 fl (84-94); Monocytes # (Auto) 0.6 K/mm3 (0.0-0.8); Monocytes % (Auto) 7.8 % (0.0-7.3); Platelet Count 167 K/mm3 (140-440); Red Cell Distribution Width 15.9 % (13.2-15.2)
[2019-01-31 08:44] LABS: INR 1.15 (0.87-1.13)
[2019-01-31 08:45] LABS: Partial Thromboplastin Time 26.6 Sec. (24.2-36.6)
[2019-01-31 08:53] LABS: BUN/Creatinine Ratio 17; Blood Urea Nitrogen 20 mg/dL (9-20); Calcium 9.5 mg/dL (8.4-10.2); Hemolysis Index 12
[2019-01-31] MEDS ORDERED: SODIUM CHLORIDE 0.9% 500 ML 500 ML ONE (10:42)
[2019-01-31] MEDS: ASPIRIN 81 MG TAB CHEW PO SCH (10:50)
[2019-01-31] MEDS ORDERED: ASPIRIN 81 MG TAB CHEW ONE (10:51)
[2019-01-31] MEDS ORDERED: SODIUM CHLORIDE 0.9% 500 ML 500 ML IV SCH (11:00)
[2019-01-31] MEDS ORDERED: MIDAZOLAM 2 MG/2 ML INJ ONE (11:17)
[2019-01-31] MEDS ORDERED: HEPARIN/NS 5000 UNIT/500ML 1,000 ML IR ONE (11:17)
[2019-01-31] MEDS ORDERED: fentaNYL 100 MCG/2 ML INJ ONE (11:17)
[2019-01-31] MEDS ORDERED: VERAPAMIL 5 MG/2 ML INJ ONE (11:18)
[2019-01-31] MEDS ORDERED: LIDOCAINE (2%) 20 MG/1 ML VIAL 20 ML MDV INFILTRATI ONE (11:18)
[2019-01-31] MEDS ORDERED: NITROGLYCERIN SYRINGE 3 ML ONE (11:19)
[2019-01-31] MEDS ORDERED: hydrALAZINE 20 MG/1 ML INJ ONE (11:59)
[2019-01-31] MEDS: HEPARIN 10,000 UNITS/10 ML VIAL ONE ×5 (12:02→12:43)
[2019-01-31] MEDS ORDERED: CLOPIDOGREL 300 MG TAB ONE (12:46)
--- NOTE | 2019-01-31 12:53 | Event Note ---
Date: 01/31/19 Cardiac catheterization was performed via the right radial artery, no complications. We found an 80% stenosis of the distal left anterior descending artery. Ad hoc coronary angioplasty was performed, with deployment of a 3.5 mm drug-eluting stent, excellent angiographic results. The patient is recommended for overnight post PCI observation, discharge tomorrow on guideline directed medical therapy including aspirin and Plavix.
--- NOTE | 2019-01-31 12:57 | Cardiac Catherization Report ---
CARDIAC CATHETERIZATION AND CORONARY ANGIOPLASTY REPORT REASON FOR PROCEDURE: The patient is a 64-year-old man who presented with chest pain, abnormal thallium stress test, referred for cardiac catheterization. Risks and benefits of the procedure were discussed with the patient and his family and he consents to proceed. PROCEDURES: 1. Left heart catheterization. 2. Selective left and right coronary angiography. 3. Angioplasty and stenting of the distal left anterior descending artery. 4. Sedation time, start 11:56, end 12:26. The patient was prepped and draped in a sterile fashion after informed consent. The right radial cath site was prepped and draped after a negative Joaquin's test. The right radial artery was entered using Seldinger technique followed by placement of a 6-Malay hydrophilic sheath. Routine radial cocktail was administered via the sheath. Left coronary angiography was performed using a #3.5 left Daniela. A #4 left Daniela was used for right coronary angiography. The angiograms were reviewed. CORONARY ANGIOGRAPHY: There was moderate diffuse coronary ectasia. The left main coronary artery was free of significant disease. The left anterior descending artery contained diffuse mild atherosclerosis of its proximal and mid segments. Notably, there was a focal, 80% stenosis of the distal segment of the LAD. The LAD was of wide caliber through its length leading up to the apex of the left ventricle. The diagonal branches of the LAD contained diffuse mild atherosclerosis. Circumflex artery was similarly ectatic, contained mild diffuse atherosclerosis, no significant focal obstructive lesions. The right coronary artery was dominant, also moderately to severely ectatic, contained mild diffuse atherosclerosis with no significant obstructive lesions. CORONARY ANGIOPLASTY: After review of the angiograms, ad hoc angioplasty of the distal LAD stenosis was recommended. We selected a #3.0 XB guiding catheter and advanced to the left coronary ostium. A 0.014 inch Machine Staker 50 guidewire was introduced into the LAD, and maneuvered across the distal vessel stenosis. In the primary stenting maneuver, we deployed a 3.5 x 18 mm drug-eluting stent, across the lesional segment and inflated to optimal pressures. Following stenting, there was an excellent angiographic result, 0 residual stenosis and MARVIN 3 flow was maintained. The patient tolerated the procedure very well and there were no complications. The catheters and the wires and the sheaths were removed, hemostasis achieved using a TR band. The patient was returned to the postprocedure unit in stable condition. There were no complications. CONCLUSION: 1. Severe stenosis of the distal segment of the LAD. 2. Successful angioplasty and stenting with deployment of a 3.5 mm drug-eluting stent. 3. An echocardiogram will be ordered for left ventricular function and valvular function assessment. JOB# [id number] MAGGIE/NTS
[2019-01-31] MEDS ORDERED: SODIUM CHLORIDE 0.9% 1000 ML 1,000 ML IV SCH (13:00)
[2019-01-31] MEDS: INSULIN REGULAR, HUMAN 100 UNITS/1 ML SUB-Q SCH ×2 (13:23→22:44)
[2019-01-31] MEDS: ENOXAPARIN 40 MG/0.4 ML INJ SUB-Q SCH (13:25)
[2019-01-31] MEDS: PANTOPRAZOLE 40 MG TAB PO SCH (13:35)
[2019-01-31] MEDS: METOPROLOL TARTRATE 50 MG TAB PO SCH ×2 (13:35→22:40)
[2019-01-31] MEDS: PRAVASTATIN 20 MG TAB PO SCH (13:36)
[2019-01-31] MEDS: NIFEdipine XL 60 MG TAB PO SCH (13:36)
[2019-01-31] MEDS: LISINOPRIL 40 MG TAB PO SCH (13:38)
--- NOTE | 2019-01-31 15:01 | Progress Note ---
Assessment and Plan Assessment and plan: Patient is a 64-year-old -[place] man with history of hypertension, DM type 2 and dyslipidemia who presents to [facility] with chest pains. He admits to being noncompliant with medications since August 2018. In ED, he was found to have malignant hypertension. * pCXR Impression: Congestion. Follow up right hilar prominence is suggested Malignant hypertension, BP on admission 189/121: treat with anti-hypertensives and prn IV medications Chest pains: stress test for ischemic evaluation, CAD s/p cardiac shent Evaluate for Hypertensive heart disease vs Acute diastolic heart failure although proBNP in normal range: TTE pending Microcytosis without anemia: needs outpatient colonoscopy if he hasn't Type 2 DM complicated by hyperglycemia: jesse, sam, ada. 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 Global left ventricular systolic funciton is at lower limits of normal, est EF 50-55%, mild to moderate concentric LVH, mild MR, mild AR, trace TR get 2v CXR==>negative Cardiology consulted, input noted Disposition: continue inpatient care, anticipate discharge tomorrow. History Interval history: Patient was seen and examined. Follow-up on current diagnosis of Chest pains and uncontrolled hypertension. Overnight events reported to me was chest pains, repeat Troponin normal. Patient denies any shortness breath, nausea/vomiting or severe headaches. Imaging, nursing note, chart, labs and old chart reviewed. Discussed with patient. Hospitalist Physical - Physical exam Narrative exam: Gen: WDWN, NAD, Awake, Alert, Orientated HEENT: NCAT, EOMI, PERRL, OP Clear Neck: supple, no adenopathy, no thyromegaly, no JVD CVS/Heart: RRR, normal S1S2, pulses present bilaterally Chest/Lungs: CTA B, Symmetrical chest expansion, good air entry bilaterally GI/Abdomen: soft, NTND, good bowel sounds, no guarding or rebound /Bladder: no suprapubic tenderness, no CVA or paraspinal tenderness Extermity/Skin: no c/c/e, no obvious rash MSK: FROM x 4 Neuro: CN 2-12 grossly intact, no new focal deficits Psych: calm - Constitutional Vitals: Temp Pulse Resp BP Pulse Ox 98.1 F 89 18 188/89 100 01/31/19 04:38 01/31/19 13:38 01/31/19 04:38 01/31/19 13:38 01/31/19 04:38 General appearance: Present: no acute distress Results - Labs CBC & Chem 7: 01/31/19 08:16 01/31/19 08:16 Labs: Laboratory Last Values WBC 7.3 K/mm3 (4.5-11.0) 01/31/19 08:16 RBC 5.00 M/mm3 (3.65-5.03) 01/31/19 08:16 Hgb 13.7 gm/dl (11.8-15.2) 01/31/19 08:16 Hct 42.1 % (35.5-45.6) 01/31/19 08:16 MCV 84 fl (84-94) 01/31/19 08:16 MCH 27 pg (28-32) L 01/31/19 08:16 MCHC 33 % (32-34) 01/31/19 08:16 RDW 15.9 % (13.2-15.2) H 01/31/19 08:16 Plt Count 167 K/mm3 (140-440) 01/31/19 08:16 Lymph % (Auto) 19.0 % (13.4-35.0) 01/31/19 08:16 [place] % (Auto) 7.8 % (0.0-7.3) H 01/31/19 08:16 Eos % (Auto) 2.6 % (0.0-4.3) 01/31/19 08:16 Baso % (Auto) 0.8 % (0.0-1.8) 01/31/19 08:16 Lymph # 1.4 K/mm3 (1.2-5.4) 01/31/19 08:16 [place] # 0.6 K/mm3 (0.0-0.8) 01/31/19 08:16 Eos # 0.2 K/mm3 (0.0-0.4) 01/31/19 08:16 Baso # 0.1 K/mm3 (0.0-0.1) 01/31/19 08:16 Seg Neutrophils % 69.8 % (40.0-70.0) 01/31/19 08:16 Seg Neutrophils # 5.1 K/mm3 (1.8-7.7) 01/31/19 08:16 PT 14.4 Sec. (12.2-14.9) 01/31/19 08:16 INR 1.15 (0.87-1.13) H 01/31/19 08:16 APTT 26.6 Sec. (24.2-36.6) 01/31/19 08:16 Sodium 140 mmol/L (137-145) 01/31/19 08:16 Potassium 4.4 mmol/L (3.6-5.0) 01/31/19 08:16 Chloride 103.4 mmol/L (98-107) 01/31/19 08:16 Carbon Dioxide 23 mmol/L (22-30) 01/31/19 08:16 Anion Gap 18 mmol/L 01/31/19 08:16 BUN 20 mg/dL (9-20) 01/31/19 08:16 Creatinine 1.2 mg/dL (0.8-1.5) 01/31/19 08:16 Estimated GFR > 60 ml/min 01/31/19 08:16 BUN/Creatinine Ratio 17 % 01/31/19 08:16 Glucose 167 mg/dL (75-100) H 01/31/19 08:16 POC Glucose 153 (70-105) H 01/31/19 10:12 Hemoglobin A1c 7.4 % (4-6) H 01/27/19 21:17 Calcium 9.5 mg/dL (8.4-10.2) 01/31/19 08:16 Troponin T 0.012 ng/mL (0.00-0.029) 01/29/19 17:20 NT-Pro-B Natriuret Pep 833.0 pg/mL (0-900) 01/27/19 22:53 Triglycerides 161 mg/dL (2-149) H 01/28/19 05:44 Cholesterol 184 mg/dL (50-199) 01/28/19 05:44 LDL Cholesterol Direct 134 mg/dL (50-130) H 01/28/19 05:44 HDL Cholesterol 35 mg/dL (40-59) L 01/28/19 05:44 Cholesterol/HDL Ratio 5.25 % 01/28/19 05:44 Active Medications - Current Medications Current Medications: Generic Name Dose Route Start Last Admin Trade Name Freq PRN Reason Stop Dose Admin Acetaminophen 650 mg 01/27/19 23:37 Tylenol PO Q4H PRN Pain MILD(1-3)/Fever >100.5/GALDAMEZ Aspirin 81 mg 01/28/19 10:00 01/31/19 10:50 Baby Aspirin PO 81 mg QDAY LUIS Administration Atorvastatin Calcium 40 mg 01/31/19 22:00 Lipitor PO QHS LUIS Clopidogrel Bisulfate 75 mg 02/01/19 10:00 Plavix PO QDAY LUIS Dextrose 50 ml 01/30/19 10:02 D50w (25gm) Syringe IV PRN PRN Hypoglycemia Enoxaparin Sodium 40 mg 01/28/19 10:00 01/31/19 13:25 Lovenox SUB-Q Not Given QDAY LUIS Hydralazine HCl 10 mg 01/28/19 00:01 01/29/19 15:38 Apresoline IV 10 mg Q4HR PRN Administration Blood Pressure Sodium Chloride 500 mls @ 50 mls/hr 01/31/19 11:00 01/31/19 10:54 Nacl 0.9% 500 Ml IV 50 mls/hr DIRECT LUIS Administration Sodium Chloride 1,000 mls @ 100 mls/hr 01/31/19 13:00 01/31/19 13:35 Nacl 0.9% 1000 Ml IV 01/31/19 22:59 100 mls/hr DIRECT LUIS Administration Insulin Human Regular 0 units 01/30/19 11:30 01/31/19 13:23 Humulin R SUB-Q Not Given ACHS [facility] Protocol Labetalol HCl 10 mg 01/27/19 23:38 01/29/19 17:09 Normodyne IV 10 mg Q4H PRN Administration BP >170/105; hold for HR <60 Lisinopril 40 mg 01/28/19 10:00 01/31/19 13:38 Zestril PO 40 mg QDAY LUIS Administration Metoprolol Tartrate 50 mg 01/31/19 13:00 01/31/19 13:35 Lopressor PO 50 mg BID LUIS Administration Morphine Sulfate 2 mg 01/28/19 06:40 01/29/19 17:08 Morphine IV 2 mg Q4H PRN Administration Pain, Moderate (4-6) Nifedipine 60 mg 01/31/19 13:00 01/31/19 13:36 Procardia Xl PO 60 mg QDAY LUIS Administration Ondansetron HCl 4 mg 01/27/19 23:37 01/28/19 19:28 Zofran IV 4 mg Q8H PRN Administration Nausea And Vomiting Pantoprazole Sodium 40 mg 01/28/19 10:00 01/31/19 13:35 Protonix PO 40 mg DAILY LUIS Administration Pravastatin Sodium 10 mg 01/28/19 10:00 01/31/19 13:36 Pravachol PO 10 mg DAILY LUIS Administration Sodium Chloride 10 ml 01/28/19 10:00 01/31/19 13:37 Sodium Chloride Flush Syringe 10 Ml IV 10 ml BID LUIS Administration Sodium Chloride 10 ml 01/27/19 23:37 Sodium Chloride Flush Syringe 10 Ml IV PRN PRN LINE FLUSH
--- NOTE | 2019-02-01 08:09 | XRay Report ---
CHEST 1 VIEW INDICATION: Recent coronary artery catheterization. COMPARISON: 01/28/2019 FINDINGS: Support devices: None. Heart: Within normal limits. Lungs/Pleura: No acute air space or interstitial disease. Additional findings: None. IMPRESSION: No acute findings. Signer Name: Anthony Correa Jr, MD Signed: 02/01/2019 8:05 AM Workstation Name: [id number]
[2019-02-01 08:20] LABS: Creatine Kinase MB 7.8 ng/mL (0.0-4.0)
[2019-02-01 08:23] LABS: BUN/Creatinine Ratio 16; Blood Urea Nitrogen 18 mg/dL (9-20); Calcium 9.9 mg/dL (8.4-10.2); Hemolysis Index 17
[2019-02-01] MEDS: INSULIN REGULAR, HUMAN 100 UNITS/1 ML SUB-Q SCH ×3 (08:54→12:03)
[2019-02-01] MEDS: ENOXAPARIN 40 MG/0.4 ML INJ SUB-Q SCH (09:00)
[2019-02-01] MEDS: LISINOPRIL 40 MG TAB PO SCH (09:01)
[2019-02-01] MEDS: ASPIRIN 81 MG TAB CHEW PO SCH (09:01)
[2019-02-01] MEDS: PANTOPRAZOLE 40 MG TAB PO SCH (09:01)
[2019-02-01] MEDS: METOPROLOL TARTRATE 50 MG TAB PO SCH (09:02)
[2019-02-01] MEDS: PRAVASTATIN 20 MG TAB PO SCH (09:02)
[2019-02-01] MEDS: NIFEdipine XL 60 MG TAB PO SCH (09:02)
[2019-02-01 09:04] VITALS: BP 147/90
[2019-02-01] MEDS ORDERED: CLOPIDOGREL 75 MG TAB PO SCH (10:00)
--- NOTE | 2019-02-01 10:17 | Discharge Summary ---
Providers - Providers Date of Admission: 01/28/19 15:46 Date of discharge: 02/01/19 Attending physician: BILL REYES 01/27/19 Consult to Cardiac Rehabilitation [CONS] Routine Reason For Exam: Phase I 01/27/19 23:54 Consult to Physician [CONS] Routine Comment: Consulting Provider: KIANA MCKEON Physician Instructions: Reason For Exam: chest pain, hx htn 01/31/19 Consult to Cardiac Rehabilitation [CONS] Routine Reason For Exam: post pci Primary care physician: LUIS LEIGH Hospitalization Reason for admission: chest pain, shortness of breath, hypertensive emergency Condition: Stable Pertinent studies: Echocardiogram, stress thallium Procedures: Left heart cardiac catheterization Hospital course: 63-year-old Mr. Jaramillo with history of hypertension and diabetes admitted via emergency room for evaluation of chest pain shortness of breath and hypertensive emergency. His stress thallium was abnormal. Echocardiogram showed ejection fraction of about 50% .cardiology consult was also obtained and subsequently he had left heart cardiac catheterization yesterday which showed greater than 80% stenosis in the distal LAD and a stent was placed. Today's blood pressure is fairly well controlled and he is medically stable for discharg e. Follow-up with cardiology and his primary care physician Disposition: DC-01 TO HOME OR SELFCARE Time spent for discharge: 38 min - Discharge Diagnoses (1) Morbid obesity Status: Chronic Comment: Counseling regarding weight loss diet control regular exercise was done (2) Abnormal thallium stress test Status: Acute (3) Hypertensive emergency Status: Acute (4) Type 2 diabetes mellitus with hyperosmolar nonketotic hyperglycemia Status: Chronic Comment: A1c 7.4 Core Measure Documentation - Palliative Care Palliative Care/ Comfort Measures: Not Applicable - Core Measures Any of the following diagnoses?: none Exam - Constitutional Vitals: Temp Pulse Resp BP Pulse Ox 98.1 F 90 18 147/90 95 02/01/19 07:49 02/01/19 09:02 02/01/19 07:49 02/01/19 09:02 02/01/19 09:57 General appearance: Present: no acute distress - EENT Eyes: Present: PERRL, EOM intact ENT: clear oral mucosa - Neck Neck: Present: supple, normal ROM. Absent: masses or JVD - Respiratory Respiratory effort: normal Respiratory: bilateral: CTA - Cardiovascular Rhythm: regular Heart Sounds: Present: S1 & S2 - Extremities Extremities: No edema Peripheral Pulses: within normal limits - Abdominal General gastrointestinal: Present: soft, non-tender Male genitourinary: Present: deferred - Rectal Rectal Exam: deferred - Integumentary Integumentary: Present: clear - Musculoskeletal Musculoskeletal: strength equal bilaterally - Psychiatric Psychiatric: appropriate mood/affect - Neurologic Neurologic: no focal deficits Plan Activity: advance as tolerated Weight Bearing Status: Full Weight Bearing Diet: regular, low fat, low cholesterol, low salt, diabetic Follow up with: PRIMARY MD LION [Referring] - 3-5 Days KIANA MCKEON MD [Staff Physician] - 14 Days Prescriptions: Aspirin [Aspirin BABY CHEW TAB] 81 mg PO QDAY #30 tab.chew AtorvaSTATin [Lipitor] 40 mg PO QHS #30 tablet Metoprolol [Lopressor TAB] 50 mg PO BID #60 tablet Clopidogrel [Plavix] 75 mg PO QDAY #30 tablet NIFEdipine XL [Procardia Xl] 60 mg PO QDAY #60 tablet Pantoprazole [Protonix TAB] 40 mg PO DAILY #30 tablet Lisinopril [Zestril TAB] 40 mg PO QDAY #30 tablet
[2019-02-01 10:25] LABS: Basophils # (Auto) 0.1 K/mm3 (0.0-0.1); Basophils % (Auto) 0.8 % (0.0-1.8); Eosinophils # (Auto) 0.2 K/mm3 (0.0-0.4); Eosinophils % (Auto) 2.1 % (0.0-4.3); Hemoglobin 13.8 gm/dl (11.8-15.2); Lymphocytes # (Auto) 1.2 K/mm3 (1.2-5.4); Lymphocytes % (Auto) 14.8 % (13.4-35.0); Mean Corpuscular HGB Conc 33 % (32-34); Mean Corpuscular Volume 84 fl (84-94); Monocytes # (Auto) 0.5 K/mm3 (0.0-0.8); Monocytes % (Auto) 6.4 % (0.0-7.3); Platelet Count 186 K/mm3 (140-440); Red Blood Count 5.03 M/mm3 (3.65-5.03); Red Cell Distribution Width 15.8 % (13.2-15.2)
--- NOTE | 2019-02-01 10:35 | Progress Note ---
Assessment and Plan Chest pain Abnormal MPI status post PCI of the distal left anterior descending artery using drug- eluting stent Hypertension Diabetes Continue medical therapy for coronary artery disease including aspirin and Plavix. Stable for cardiac discharge. Follow up with [facility] as scheduled. Subjective Date of service: 02/01/19 Interval history: Patient denies chest pain and shortness of breath. Objective Vital Signs Temp Pulse Pulse Pulse Pulse Resp BP 02/01/19 09:57 02/01/19 09:02 90 147/90 02/01/19 09:01 90 147/90 02/01/19 07:49 98.1 F 18 147/90 02/01/19 06:44 83 02/01/19 04:26 97.7 F 93 H 18 161/99 01/31/19 23:35 97.7 F 80 18 145/95 01/31/19 22:40 88 155/107 01/31/19 22:39 98.3 F 87 18 155/107 01/31/19 22:00 80 86 88 88 18 01/31/19 20:26 98.5 F 86 18 158/100 01/31/19 15:42 72 187/83 01/31/19 15:32 85 182/112 01/31/19 13:38 89 188/89 01/31/19 13:35 89 188/89 01/31/19 13:16 92 H 188/91 BP Pulse Ox 02/01/19 09:57 95 02/01/19 09:02 02/01/19 09:01 02/01/19 07:49 02/01/19 06:44 152/99 02/01/19 04:26 100 01/31/19 23:35 95 01/31/19 22:40 01/31/19 22:39 95 01/31/19 22:00 98 01/31/19 20:26 97 01/31/19 15:42 97 01/31/19 15:32 94 01/31/19 13:38 01/31/19 13:35 01/31/19 13:16 98 - Physical Examination General: No Apparent Distress HEENT: Positive: PERRL Neck: Positive: neck supple Cardiac: Positive: Reg Rate and Rhythm Lungs: Positive: Decreased Breath Sounds Neuro: Positive: Grossly Intact Abdomen: Positive: Soft Extremities: Absent: edema - Labs and Meds Cardiac Enzymes 02/01/19 Range/Units 07:17 CK-MB (CK-2) 7.8 H (0.0-4.0) ng/mL CBC 02/01/19 Range/Units 09:52 WBC 8.2 (4.5-11.0) K/mm3 RBC 5.03 (3.65-5.03) M/mm3 Hgb 13.8 (11.8-15.2) gm/dl Hct 42.0 (35.5-45.6) % Plt Count 186 (140-440) K/mm3 Lymph # 1.2 (1.2-5.4) K/mm3 [place] # 0.5 (0.0-0.8) K/mm3 Eos # 0.2 (0.0-0.4) K/mm3 Baso # 0.1 (0.0-0.1) K/mm3 Comprehensive Metabolic Panel 02/01/19 Range/Units 07:17 Sodium 138 (137-145) mmol/L Potassium 4.5 (3.6-5.0) mmol/L Chloride 102.0 (98-107) mmol/L Carbon Dioxide 22 (22-30) mmol/L BUN 18 (9-20) mg/dL Creatinine 1.1 (0.8-1.5) mg/dL Glucose 180 H (75-100) mg/dL Calcium 9.9 (8.4-10.2) mg/dL
== END 2019-02-01 12:09 | disposition home or self-care (01) | DRG 246 ==
LOC: ED 20:36 → 4A 23:37 → OBSVTOIN 01-28 15:46
PROVIDERS: ADMIT Internal Medicine; ATTEND Internal Medicine
PROC: 027034Z Dilation of Coronary Artery, One Artery with Drug-eluting Intraluminal Device, Percutaneous Approach (ICD-10-PCS; principal; 2019-01-31)
PROC: 4A023N7 Measurement of Cardiac Sampling and Pressure, Left Heart, Percutaneous Approach (ICD-10-PCS; 2019-01-31)
PROC: B2111ZZ Fluoroscopy of Multiple Coronary Arteries using Low Osmolar Contrast (ICD-10-PCS; 2019-01-31)
DX: I25.10 Atherosclerotic heart disease of native coronary artery without angina pectoris (principal); E11.00 Type 2 diabetes mellitus with hyperosmolarity without nonketotic hyperglycemic-hyperosmolar coma (NKHHC); Z68.43 Body mass index [BMI] 50.0-59.9, adult; I16.1 Hypertensive emergency; E78.5 Hyperlipidemia, unspecified; I10 Essential (primary) hypertension; D64.9 Anemia, unspecified; Z96.89 Presence of other specified functional implants; E11.65 Type 2 diabetes mellitus with hyperglycemia; E66.01 Morbid (severe) obesity due to excess calories; Z79.4 Long term (current) use of insulin; Z91.19 Patient's noncompliance with other medical treatment and regimen
CPT/HCPCS: 36415; 71045; 71046; 78452; 80048; 80061; 82550; 82553; 82962; 83036; 83880; 84484; 85025; 85347; 85610; 85730; 92928; 93005; 93010; 93017; 93306; 93458; 96374; 96375; G0378; A9270-GY; A9502; C1769; C1874; C1887; C1894; C9600; J0360; J1644; J1650; J1815; J2250; J2270; J2405; J2785; J3010; J7030; J7040; Q9967

== ENCOUNTER 2020-05-14 14:30 | Emergency (ER) | payer MEDICARE ==
[2020-05-14 15:03] VITALS: BP 167/100
[2020-05-14] MEDS ORDERED: SODIUM CHLORIDE 0.9% 1000 ML 1,000 ML IV ONE (15:17)
--- NOTE | 2020-05-14 15:21 | Event Note ---
ED Screening Note Date of service: 05/14/20 Time: 15:16 ED Screening Note: 65-year-old -[place] male presents to the emergency room from Dr. El's office from having elevated blood sugar greater than 550. Patient states that he is due for his second insulin shot as he would have eaten lunch. Patient states that he had a tall glass of orange juice last night as he was feeling a little under the weather. Patient denies any nausea no vomiting no chest pain or shortness of breath. Blood sugar in triage is 537. This initial assessment/diagnostic orders/clinical plan/treatment(s) is/are subject to change based on patients health status, clinical progression and re- assessment by fellow clinical providers in the ED. Further treatment and workup at subsequent clinical providers discretion. Patient/guardian urged not to elope from the ED as their condition may be serious if not clinically assessed and managed. Initial orders include:
[2020-05-14 15:46] LABS: Basophils # (Auto) 0.1 K/mm3 (0.0-0.1); Basophils % (Auto) 0.7 % (0.0-1.8); Eosinophils # (Auto) 0.1 K/mm3 (0.0-0.4); Hematocrit 42.5 % (35.5-45.6); Hemoglobin 13.6 gm/dl (11.8-15.2); Lymphocytes # (Auto) 1.5 K/mm3 (1.2-5.4); Lymphocytes % (Auto) 16.3 % (13.4-35.0); Mean Corpuscular HGB Conc 32 % (32-34); Mean Corpuscular Volume 84 fl (84-94); Monocytes # (Auto) 0.5 K/mm3 (0.0-0.8); Platelet Count 171 K/mm3 (140-440); Red Blood Count 5.05 M/mm3 (3.65-5.03); Red Cell Distribution Width 14.1 % (13.2-15.2)
[2020-05-14 16:09] LABS: Albumin 4.3 g/dL (3.9-5); Calcium 10.4 mg/dL (8.4-10.2)
== END 2020-05-14 17:30 ==
LOC: ED 14:30
DX: E11.9 Type 2 diabetes mellitus without complications (principal); Z53.21 Procedure and treatment not carried out due to patient leaving prior to being seen by health care provider
CPT/HCPCS: 36415; 80053; 82805; 82962; 85025